=== PATIENT | female | born 1990 | race African-American/Black ===

== ENCOUNTER 2018-03-08 16:55 | Emergency (ER) | payer OTHER, MEDICAID ==
[~2018-03-08] VITALS: Ht 167.6 cm; Wt 78.0 kg
[2018-03-08 17:43] VITALS: BP 113/57
== END 2018-03-08 17:54 | disposition left against medical advice (07) ==
LOC: ER 16:55
DX: Z53.21 Procedure and treatment not carried out due to patient leaving prior to being seen by health care provider (principal)